=== PATIENT | female | born 1995 | race Caucasian/White ===

== ENCOUNTER 2017-01-09 14:48 | Inpatient (IN) | payer BC ==
[2017-01-09] VITALS (21 sets, daily range): BP systolic 106–125; BP diastolic 62–79; PULSE 86–110; RESP 16–30; Ht 167.6 cm; Wt 54.0 kg
[~2017-01-09] VITALS: Ht 167.6 cm; Wt 54.0 kg
[2017-01-09 16:10] LABS: BASOPHILS % 0.5 % (0.0-2.0); EOSINOPHILS # 0.1 10^3/ul (0.0-0.5); EOSINOPHILS % 0.8 % (0.0-7.0); HEMATOCRIT 40.8 % (37.0-47.0); HEMOGLOBIN 13.8 g/dl (12.0-16.0); LYMPHOCYTES % 40.3 % (18.0-55.0); MEAN CORPUSCULAR HEMOGLOBIN 30.5 pg (29.0-33.0); MEAN CORPUSCULAR HGB CONC 33.8 g/dl (32.0-37.0); MEAN CORPUSCULAR VOLUME 90.3 fl (72.0-104.0); MEAN PLATELET VOLUME 11.9 fl (7.4-10.4); MONOCYTE # 0.6 10^3/ul (0.3-0.9); MONOCYTES % 7.5 % (0.0-13.0); NEUTROPHILS % 50.6 % (30.0-74.0); PLATELET COUNT 243 10^3/UL (140-415); RED BLOOD COUNT 4.52 10^6/ul (4.20-5.40); RED CELL DISTRIBUTION WIDTH 11.7 % (11.5-14.5); WHITE BLOOD COUNT 7.6 10^3/ul (4.8-10.8)
[2017-01-09] MEDS ORDERED: FENTAnyl 50 MCG/ML VIAL ONE ×2 (16:12→16:49)
[2017-01-09] MEDS ORDERED: CEFAZOLIN 1 GM INJ ONE (16:12)
[2017-01-09] MEDS ORDERED: PROPOFOL 20 ML ONE (16:12)
[2017-01-09] MEDS ORDERED: ROCURONIUM 50 MG INJ ONE (16:12)
[2017-01-09] MEDS ORDERED: MIDAZOLAM 1 MG/ML 2 ML INJ ONE (16:12)
[2017-01-09] MEDS ORDERED: ROPIVACAINE 0.2% 20 ML VIAL ONE (16:13)
--- NOTE | 2017-01-09 16:17 | HP ---
Date/Time of Note Date/Time of Note DATE: 01/09/17 TIME: 16:13 Assessment/Plan VTE Prophylaxis VTE Prophylaxis Intervention: ambulation Lines/Catheters IV Catheter Type (from Nrsg): Peripheral IV Assessment/Plan Assessment/Plan proceed with with minilap, and L ovarian cystectomy HPI/ROS Admit Date/Time Admit Date/Time 01/10/2016 Hx of Present Illness admitted for L ovarian cystectomy she had ovarian cyst X 6 months evidenced by U/S , MRI Also C/O pain in L lower abdominal quadrant X same period of month ROS Constitutional: improved, no complaints Eyes: no complaints ENT: no complaints Respiratory: no complaints Cardiovascular: no complaints Gastrointestinal: no complaints Genitourinary: no complaints Musculoskeletal: no complaints Skin: no complaints Neurologic: no complaints Endocrine: no complaints Lymphatic: no complaints Psychological: nl mood/affect, no complaints Immunologic: no complaints PMH/Family/Social Past Medical History Medical History: no pertinent history Past Surgical History Past Surgical Hx: no surgical history Family History Significant Family History: no pertinent family hx Social History Alcohol Use: none Smoking Status: Never smoker Drug Use: none Exam/Review of Systems Vital Signs Vitals see nurses notes Exam Constitutional: alert, oriented, well developed Psych: nl mood/affect, no complaints Head: atraumatic, normocephalic Eyes: EOMI, PERRL, nl conjunctiva, nl lids, nl sclera ENMT: nl external ears & nose, nl lips & teeth, nl nasal mucosa & septum Neck: non-tender, supple Respiratory: clear to auscultation, normal air movement Cardiovascular: nl pulses, regular rate and rhythm Gastrointestinal: nl liver, spleen, non-tender, soft Musculoskeletal: nl extremities to inspection Extremities: normal pulses Neurological: WEIGHT AND TEST BAR CLERK II-XII intact, nl mental status, nl speech, nl strength Skin: nl turgor, No rash or lesions Lymph: nl lymph nodes JOHN LEON MD Jan 09, 2017 16:17
[2017-01-09 16:27] LABS: ADD UMIC YES; UR ASCORBIC ACID NEGATIVE (NEGATIVE); UR BILIRUBIN (Dip) NEGATIVE (NEGATIVE); UR BLOOD (Dip) NEGATIVE (NEGATIVE); UR CLARITY CLEAR (CLEAR); UR COLOR YELLOW (YELLOW); UR GLUCOSE (Dip) NEGATIVE (NEGATIVE); UR KETONES (Dip) NEGATIVE (NEGATIVE); UR LEUKOCYTE ESTERASE (Dip) 1+ Leu/ul (NEGATIVE); UR NITRITE (Dip) NEGATIVE (NEGATIVE); UR RBC 1 /HPF (0-5); UR SPECIFIC GRAVITY (Dip) 1.015 (1.003-1.030); UR SQUAMOUS EPITHELIAL CELL FEW /HPF (FEW); UR TOTAL PROTEIN (Dip) NEGATIVE (NEGATIVE); UR UROBILINOGEN (Dip) NEGATIVE (NEGATIVE)
[2017-01-09 16:30] LABS: INR 1.01; PROTIME 13.3 Sec (12.2-14.2)
[2017-01-09 16:31] LABS: PARTIAL THROMBOPLASTIN TIME 31.9 Sec (25.0-35.0)
[2017-01-09] MEDS ORDERED: DEXAMETHASONE 4 MG/ML 1 ML INJ ONE (16:47)
[2017-01-09] MEDS ORDERED: METOCLOPRAMIDE 10 MG INJ ONE (16:47)
[2017-01-09] MEDS ORDERED: KETOROLAC 30 MG INJ ONE ×2 (16:47→19:27)
[2017-01-09] MEDS ORDERED: ONDANSETRON 4 MG INJ ONE (16:47)
[2017-01-09] MEDS ORDERED: SUGAMMADEX SODIUM 200 MG/2 ML VIAL IV ONE (16:47)
[2017-01-09] MEDS ORDERED: MEPERIDINE 25 MG INJ IV PRN (18:30)
[2017-01-09] MEDS ORDERED: ONDANSETRON 4 MG INJ IV PRN (18:30)
[2017-01-09] MEDS ORDERED: HYDROmorphONE 0.2 MG/ML PCA IV SCH (18:30)
[2017-01-09] MEDS ORDERED: FENTAnyl 50 MCG/ML VIAL IV PRN ×3 (18:30)
[2017-01-09] MEDS ORDERED: DIPHENHYDRAMINE 50 MG INJ IV PRN (18:30)
[2017-01-09] MEDS ORDERED: HYDROmorphONE (0.2 MG/ML) 10ML SYG IV PRN ×2 (18:30)
[2017-01-09] MEDS ORDERED: morphine (1 MG/ML) 10ML SYRINGE IV PRN ×3 (18:30)
[2017-01-09] MEDS ORDERED: hydrALAzine 20 MG INJ IV PRN (18:30)
[2017-01-09] MEDS ORDERED: ALBUMIN HUMAN 5% 250 ML IV PRN (18:30)
[2017-01-09] MEDS ORDERED: EPHEDrine SULFATE 50 MG/5 ML SYG IV PRN (18:30)
[2017-01-09] MEDS ORDERED: KETOROLAC 60 MG INJ IM STA (18:32)
[2017-01-09] MEDS: LACTATED RINGER'S 1,000 ML IV SCH ×2 (18:32→21:00)
[2017-01-09] MEDS: HYDROmorphONE (0.2 MG/ML) 10ML SYG IV PRN ×4 (18:52→19:41)
--- NOTE | 2017-01-09 18:59 | OPPN ---
Date/Time of Note Date/Time of Note DATE: 01/09/17 TIME: 18:55 Operative Report Preoperative Diagnosis L ovarian cyst L ovarian cystectomy through minilaparotomy Postoperative Diagnosis S/P L ovarian cystectomy S/P minilaparotomy Operation/Procedure Performed minilaparotomy L ovarian cystectomy Provider: JOHN LEON MD Second Assist: FELICIA MORGAN MD Anesthesia Type: general Estimated blood loss: 10 - 50 ml's Transfusion Required: no Specimens L ovarian cyst wall Grafts/Implants: none Complications: no JOHN LEON MD Jan 09, 2017 18:59
[2017-01-09] MEDS ORDERED: BUTORPHANOL 2 MG INJ IM ONE (19:00)
[2017-01-09] MEDS ORDERED: DOXYCYCLINE 100 MG TAB PO ONE (19:00)
[2017-01-09] MEDS ORDERED: IBUPROFEN 600 MG TAB PO SCH (19:00)
[2017-01-09] MEDS ORDERED: HYDROCODONE/APAP (10/325) TAB PO PRN (19:00)
[2017-01-09] MEDS ORDERED: DOXYCYCLINE 100 MG TAB ONE (19:21)
[2017-01-09] MEDS ORDERED: BUTORPHANOL 2 MG INJ ONE (19:22)
[2017-01-09] MEDS ORDERED: KETOROLAC 30 MG INJ IM STA (19:23)
[2017-01-09] MEDS: SENNA TAB PO SCH (21:00)
[2017-01-09] MEDS: MAGNESIUM HYDROXIDE 30ML CUP PO SCH (21:00)
[2017-01-09] MEDS ORDERED: FAMOTIDINE 20 MG INJ IV SCH (21:00)
[2017-01-09] MEDS: FAMOTIDINE 20 MG TAB PO SCH (21:00)
[2017-01-09] MEDS: CEFAZOLIN 2 GM/50 ML (PMX) 50 ML IVPB SCH (22:12)
[2017-01-10] MEDS: IBUPROFEN 600 MG TAB PO SCH ×4 (00:15→18:03)
[2017-01-10 01:59] VITALS: BP 100/53; RESP 18
[2017-01-10] MEDS ORDERED: NALOXONE (0.4 MG/ML) INJ IV PRN (02:47)
[2017-01-10 03:39] VITALS: BP 135/56; RESP 19
[2017-01-10] MEDS: LACTATED RINGER'S 1,000 ML IV SCH ×4 (04:10→16:12)
--- NOTE | 2017-01-10 04:10 | OPR ---
DATE OF OPERATION: 01/09/2017 PREOPERATIVE DIAGNOSIS: Left ovarian cyst. POSTOPERATIVE DIAGNOSES: 1. Status post minilaparotomy. 2. Left ovarian cystectomy. OPERATION PERFORMED: Minilaparotomy and left ovarian cystectomy. SURGEON: Rod Garcias MD. ANESTHESIOLOGIST: Armando Greer MD. ANESTHESIA: General. OPERATIVE PROCEDURE: The patient was placed on the OR table in supine position. General anesthesia was induced. Mix catheter was then inserted into the urinary bladder in very septic condition. Inside the operating room after induction of general anesthesia, abdominal area was then prepped and draped for usual Cesarian section procedure under satisfactory anesthesia. A small incision was made with finger above the symphysis pubis and pleural symphysis pubis and extended laterally to 5 cm, lateral to linear and angular on either sides. The incision was carried down with sharp and blunt dissection until ancillary rectus muscle fascia was reached. Ancillary rectal muscle fascia was incised at mid portion. Incision extended under direct border of skin incision. Fascia was mobilized from muscle superior near rectus muscle retracted from using sharp and blunt dissection, avoiding bowel and bladder. An incision was made and extended superiorly. At this point, a large ovarian cyst, which appeared to be 15 x 15 cm, was observed, which could not be delivered through the small incision. The incision was slightly extended about 1 cm on either side. Fascial incision was also incised. Ovary was taken out, and an incision was made on the superior portion of the ovary, and the cyst was inadvertently ruptured in the superior portion. However, the cyst was totally inoculated from the ovarian tissue, and the specimen was sent for pathology. The edges of the ovary were stitched to each other through the stoma only, using 2-0 Vicryl stitch and a GI needle. Serious care was taken to avoid bowel injury. The small loop of bowel appeared to be adherent to the inferior portion of the ovary, and this could not be released. The fluid that was coming out of the cyst appeared to be brownish fluid, indicating possible endometrioma, also the cyst wall did not show any excretions outside or inside. After placing the ovarian wall together in the middle, making sure hemostasis on the stroma of ovary is secure, a FiberWire was placed on a stroma, and the stroma was manually reapproximated together. Ovarian shape was restored. Fallopian tube was totally normal. No bleeding point was seen. A small raw area on the bowel was covered with FiberWire and hemostasis remained secure. At this point, the operation was terminated. As I mentioned, serious care was taken to avoid bowel injuries throughout the operation because of close proximity of a small loop of bowel to the ovary. Announcing needle, lap, sponge, and instrument count to be correct. Abdomen was then closed in layers as follows. Peritoneum with running sutures of 2-0 Vicryl along with rectal muscles after placing a FiberWire between the layer of the muscle and fascia. The fascia was reapproximated using #1 PDS. Serious care was taken to avoid leaving any herniated site. The subcutaneous tissue was reapproximated using running sutures of 2-0 Chromic, and the skin was reapproximated using anders. The patient tolerated the procedure well, was transferred to Post Anesthesia Recovery Room in good condition. Urine stayed clear. ESTIMATED BLOOD LOSS: Around 40-50 mL. Dictated By: Rod Garcias MD /[email or web address] /Document#: [id number]
[2017-01-10] MEDS: METOCLOPRAMIDE 10 MG INJ IV PRN ×2 (04:15→15:48)
[2017-01-10 05:27] LABS: ABNORMAL IP MESSAGE 1; BASOPHILS % 0.1 % (0.0-2.0); HEMOGLOBIN 10.9 g/dl (12.0-16.0); LYMPHOCYTES # 0.9 10^3/ul (0.8-2.9); LYMPHOCYTES % 5.1 % (18.0-55.0); MEAN CORPUSCULAR HEMOGLOBIN 30.7 pg (29.0-33.0); MEAN CORPUSCULAR HGB CONC 34.1 g/dl (32.0-37.0); MEAN CORPUSCULAR VOLUME 90.1 fl (72.0-104.0); MEAN PLATELET VOLUME 12.4 fl (7.4-10.4); MONOCYTE # 1.6 10^3/ul (0.3-0.9); MONOCYTES % 8.9 % (0.0-13.0); NEUTROPHILS % 85.6 % (30.0-74.0); PLATELET COUNT 239 10^3/UL (140-415); RED BLOOD COUNT 3.55 10^6/ul (4.20-5.40); RED CELL DISTRIBUTION WIDTH 11.7 % (11.5-14.5); WHITE BLOOD COUNT 17.3 10^3/ul (4.8-10.8)
[2017-01-10 05:37] LABS: POSITIVE DIFF @See below
[2017-01-10] MEDS: CEFAZOLIN 2 GM/50 ML (PMX) 50 ML IVPB SCH ×3 (05:48→18:03)
[2017-01-10 06:32] VITALS: BP 113/60; RESP 19
[2017-01-10 08:00] VITALS: BP 97/54; RESP 18
[2017-01-10] MEDS: DOXYCYCLINE 100 MG TAB PO SCH ×2 (08:19→21:20)
[2017-01-10] MEDS: SENNA TAB PO SCH ×2 (08:20→21:20)
[2017-01-10] MEDS: FAMOTIDINE 20 MG TAB PO SCH ×2 (08:20→21:20)
[2017-01-10] MEDS: MAGNESIUM HYDROXIDE 30ML CUP PO SCH ×2 (08:20→21:19)
[2017-01-10] MEDS: HYDROCODONE/APAP (5/325) TAB PO PRN ×3 (09:39→18:03)
[2017-01-10 13:31] VITALS: BP 113/67; RESP 18
--- NOTE | 2017-01-10 15:17 | PN ---
Date/Time of Note Date/Time of Note DATE: 01/10/17 TIME: 15:14 Assessment/Plan VTE Prophylaxis VTE Prophylaxis Intervention: ambulation Lines/Catheters IV Catheter Type (from Nrsg): Peripheral IV Assessment/Plan Assessment/Plan S/P laparotomy and ovarian cystectomy POD # 1 will advance diet and ambulate continue IV ABs repeat CBC next day v Subjective 24 Hr Interval Summary NO BM passing flatus Constitutional: BM, ambulates, flatus, improved, no complaints, urine output Pain Control: well controlled Exam/Review of Systems Vital Signs Vitals Vital Signs Date Time Temp Pulse Resp B/P Pulse Ox O2 Delivery O2 Flow Rate FiO2 01/10/17 13:31 98.1 92 18 113/67 100 01/09/17 20:03 Nasal Cannula 2.0 Intake and Output 01/09/17 01/09/17 01/10/17 15:00 23:00 07:00 Intake Total 1280 ml 50 ml Output Total 1250 ml Balance 30 ml 50 ml Exam Free Text/Dictation Abdomen: soft BS + abdomen: not distended Incision: covered Constitutional: alert, oriented, well developed Psych: nl mood/affect, no complaints Head: atraumatic, normocephalic Eyes: EOMI, nl conjunctiva, nl lids, nl sclera ENMT: mucosa pink and moist, nl external ears & nose, nl lips & teeth, nl nasal mucosa & septum Neck: non-tender, supple Respiratory: clear to auscultation, normal air movement Cardiovascular: nl pulses, regular rate and rhythm Gastrointestinal: nl liver, spleen, non-tender, soft Drains NONE Musculoskeletal: nl extremities to inspection, nl gait and stance Extremities: normal pulses Neurological: SITE ACQUISITION SPECIALIST II-XII intact, nl mental status, nl speech, nl strength Skin: nl turgor, rash or lesions Lymph: nl lymph nodes Results Result Diagram: 01/10/17 0431 JOHN LEON MD Jan 10, 2017 15:17
[2017-01-10 19:45] VITALS: BP 90/50; RESP 18
[2017-01-11] MEDS: CEFAZOLIN 2 GM/50 ML (PMX) 50 ML IVPB SCH ×4 (00:22→18:18)
[2017-01-11] MEDS: IBUPROFEN 600 MG TAB PO SCH ×4 (00:23→18:18)
[2017-01-11] MEDS: HYDROCODONE/APAP (5/325) TAB PO PRN ×3 (00:28→13:57)
[2017-01-11] MEDS: LACTATED RINGER'S 1,000 ML IV SCH ×2 (00:32→04:58)
[2017-01-11 02:15] VITALS: BP 94/50; RESP 18
[2017-01-11 06:06] LABS: BASOPHILS % 0.3 % (0.0-2.0); EOSINOPHILS % 0.4 % (0.0-7.0); HEMATOCRIT 26.9 % (37.0-47.0); HEMOGLOBIN 9.1 g/dl (12.0-16.0); LYMPHOCYTES # 2.5 10^3/ul (0.8-2.9); LYMPHOCYTES % 23.7 % (18.0-55.0); MEAN CORPUSCULAR HEMOGLOBIN 31.2 pg (29.0-33.0); MEAN CORPUSCULAR HGB CONC 33.8 g/dl (32.0-37.0); MEAN CORPUSCULAR VOLUME 92.1 fl (72.0-104.0); MEAN PLATELET VOLUME 12.2 fl (7.4-10.4); MONOCYTE # 1.1 10^3/ul (0.3-0.9); MONOCYTES % 10.8 % (0.0-13.0); NEUTROPHILS % 64.5 % (30.0-74.0); PLATELET COUNT 178 10^3/UL (140-415); RED BLOOD COUNT 2.92 10^6/ul (4.20-5.40); RED CELL DISTRIBUTION WIDTH 11.9 % (11.5-14.5); WHITE BLOOD COUNT 10.3 10^3/ul (4.8-10.8)
[2017-01-11 07:55] VITALS: BP 90/53; RESP 18
[2017-01-11] MEDS: MAGNESIUM HYDROXIDE 30ML CUP PO SCH (08:37)
[2017-01-11] MEDS: FAMOTIDINE 20 MG TAB PO SCH (08:38)
[2017-01-11] MEDS: SENNA TAB PO SCH (08:38)
[2017-01-11] MEDS: DOXYCYCLINE 100 MG TAB PO SCH (08:38)
[2017-01-11 14:00] VITALS: BP 101/59; RESP 18
--- NOTE | 2017-01-11 15:04 | PN ---
Date/Time of Note Date/Time of Note DATE: 01/11/17 TIME: 15:02 Assessment/Plan VTE Prophylaxis VTE Prophylaxis Intervention: ambulation Lines/Catheters IV Catheter Type (from Nrsg): Peripheral IV Assessment/Plan Assessment/Plan consider discharging patient today Subjective 24 Hr Interval Summary passing flatus Constitutional: BM, ambulates, flatus, improved, no complaints, urine output Pain Control: well controlled Exam/Review of Systems Vital Signs Vitals Vital Signs Date Time Temp Pulse Resp B/P Pulse Ox O2 Delivery O2 Flow Rate FiO2 01/11/17 13:23 16 01/11/17 07:55 98.1 93 90/53 98 01/09/17 20:03 Nasal Cannula 2.0 Intake and Output 01/10/17 01/10/17 01/11/17 15:00 23:00 07:00 Intake Total 300 ml 1350 ml 1360 ml Balance 300 ml 1350 ml 1360 ml Exam Free Text/Dictation Abdomen: soft BS+ incision: clean Constitutional: alert, oriented, well developed Psych: nl mood/affect, no complaints Head: atraumatic, normocephalic Eyes: EOMI, nl conjunctiva, nl lids, nl sclera ENMT: mucosa pink and moist, nl external ears & nose, nl lips & teeth, nl nasal mucosa & septum Neck: non-tender, supple Respiratory: clear to auscultation, normal air movement Cardiovascular: nl pulses, regular rate and rhythm Gastrointestinal: nl liver, spleen, non-tender, soft Musculoskeletal: nl extremities to inspection, nl gait and stance Extremities: normal pulses Neurological: TIMBER SUPERVISOR II-XII intact, nl mental status, nl speech, nl strength Skin: nl turgor, rash or lesions Lymph: nl lymph nodes Results Result Diagram: 01/11/17 0504 JOHN LEON MD Jan 11, 2017 15:04
--- NOTE | 2017-01-11 15:07 | DS ---
Date/Time of Note Date/Time of Note DATE: 01/11/17 TIME: 15:05 Discharge Summary Admission/Discharge Info Admit Date/Time Jan 09, 2017 at 20:50 Discharge Date/Time 01/11/2017 Discharge Diagnosis S/P ovarian cystectomy endometrial cyst : removed endometrioma Patient Condition: Good Procedures minilaparotomy L ovarian cystectomy Hx of Present Illness admitted for L ovarian cystectomy she had ovarian cyst X 6 months evidenced by U/S , MRI Also C/O pain in L lower abdominal quadrant X same period of months Hospital Course uncomplicated Home Meds No Active Prescriptions or Reported Meds Follow-up Plan 2=3 days in clinic for staple removal Primary Care Provider Justina Cortez DO Time spent on discharge: > 30 minutes Pending Labs Laboratory Tests Test 01/11/17 05:04 White Blood Count 10.310^3/ul (4.8-10.8) Red Blood Count 2.9210^6/ul (4.20-5.40) Hemoglobin 9.1g/dl (12.0-16.0) Hematocrit 26.9% (37.0-47.0) Mean Corpuscular Volume 92.1fl (72.0-104.0) Mean Corpuscular Hemoglobin 31.2pg (29.0-33.0) Mean Corpuscular Hemoglobin Concent 33.8g/dl (32.0-37.0) Red Cell Distribution Width 11.9% (11.5-14.5) Platelet Count 15852^3/UL (140-415) Mean Platelet Volume 12.2fl (7.4-10.4) Neutrophils % 64.5% (30.0-74.0) Lymphocytes % 23.7% (18.0-55.0) Monocytes % 10.8% (0.0-13.0) Eosinophils % 0.4% (0.0-7.0) Basophils % 0.3% (0.0-2.0) Nucleated Red Blood Cells % 0.0/100WBC (0.0-0.0) Neutrophils # (Manual) 710^3/ul (1.7-7.5) Lymphocytes # 2.510^3/ul (0.8-2.9) Monocytes # 1.110^3/ul (0.3-0.9) Eosinophils # 0.010^3/ul (0.0-0.5) Basophils # 0.010^3/ul (0.0-0.1) Nucleated Red Blood Cells # 0.010^3/ul (0.0-0.0) JOHN LEON MD Jan 11, 2017 15:07
--- NOTE | 2017-01-11 15:10 | PD.PPDC ---
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 Provider Information Physician Information 21 y/o female had ovarian cystectomy that turns out to be endometrial cyst Diagnosis Final Diagnosis: S/P minilaparotomy and encometrial cystectomy Condition Patient Condition: Good Diet Diet: Resume Regular Diet Activity/Restrictions Activity: May Shower Restrictions: No Exercising No Lifting Nothing in the Vagina Wound/Drain Care Instructions Wound/Drain Care Instructions: Keep clean and dry Follow-up Follow-up with Physician: 3, 4, Day/Days (in clinic ) Return to clinic for FELT CEMENTER Instructions: Fever greater than 101 Chills Worsening abdominal pain Unable to tolerate diet Surgical Instructions: Incisional Drainage Incisional Redness JOHN LEON MD Jan 11, 2017 15:09
[2017-01-11] MEDS ORDERED: IBUP-1542 PO (15:11)
[2017-01-11 19:40] VITALS: BP 116/64; PULSE 113; RESP 19
== END 2017-01-11 19:35 | disposition home or self-care (01) | DRG 743 ==
LOC: SDS 14:48 → MS1 20:50
PROVIDERS: ADMIT Obstetrics & Gynecology; ATTEND Obstetrics & Gynecology
PROC: 0UB10ZZ Excision of Left Ovary, Open Approach (ICD-10-PCS; principal; 2017-01-09 16:00)
DX: N80.1 Endometriosis of ovary (principal)
CPT/HCPCS: 81001; 85025; 85610; 85730; 87086; 88305; J0595; J0690; J1100; J1170; J1885; J2250; J2405; J2765; J2795; J3010; J7120